=== PATIENT | female | born 1965 | race Caucasian/White ===

== ENCOUNTER 2021-04-01 21:04 | Emergency (ER) | payer OTHER | END 2021-04-02 03:00 | disposition home or self-care (01) | LOC: FER 21:04 | DX: S09.90XA Unspecified injury of head, initial encounter (principal); M79.622 Pain in left upper arm; I10 Essential (primary) hypertension; F17.210 Nicotine dependence, cigarettes, uncomplicated; W19.XXXA Unspecified fall, initial encounter; Y92.89 Other specified places as the place of occurrence of the external cause; Y99.0 Civilian activity done for income or pay | CPT/HCPCS: 70450; 70486; 73060; 73090 ==